=== PATIENT | female | born 1950 ===

== ENCOUNTER 2018-07-29 08:57 | Emergency (ER) | payer MEDICARE, OTHER ==
--- NOTE | 2018-07-29 10:05 | C.PDOC ---
History Of Present Illness 67 year old female presents to the ED complaining of sudden onset bilateral lower back pain radiating to bilateral lower extremities for 3 days. Reports pain is worse on the right side. Notes difficulty walking due to pain. States pa in is the same when she is laying down compared to when she is moving. Reports she has been taking Ibuprofen with no improvement. Denies any trauma, injuries or recent heavy lifting. Also complains of trouble breathing when she walks for one month. Denies any abdominal pain, chest pain, fever, chills, nausea, vomiting, or urinary symptoms. Time Seen by Provider: 07/29/18 09:21 Chief Complaint (Nursing): Back Pain History Per: Patient History/Exam Limitations: no limitations Onset/Duration Of Symptoms: Days (3) Current Symptoms Are (Timing): Still Present Quality Of Discomfort: "Pain" Previous Symptoms: None Associated Symptoms: None Past Medical History Reviewed: Historical Data, Nursing Documentation, Vital Signs Vital Signs: Last Vital Signs Temp 98.3 F 07/29/18 09:11 Pulse 91 H 07/29/18 09:11 Resp 18 07/29/18 09:11 BP 195/121 H 07/29/18 09:11 Pulse Ox 97 07/29/18 09:11 - Medical History PMH: Arthritis, Asthma, Gall Bladder Disease, HTN, Hypercholesterolemia, Sleep Apnea (on Cpap) Surgical History: Cholecystectomy - [facility] Procedures CORONAR ARTERIOGR-2 CATH (09/16/00) LEFT HEART CARDIAC CATH (09/16/00) LT HEART ANGIOCARDIOGRAM (09/16/00) Family History: States: No Known Family Hx - Social History Hx Tobacco Use: No Hx Alcohol Use: No Hx Substance Use: No - Immunization History Hx Tetanus Toxoid Vaccination: Yes Hx Influenza Vaccination: Yes Hx Pneumococcal Vaccination: No Review Of Systems Except As Marked, All Systems Reviewed And Found Negative. Constitutional: Negative for: Fever, Chills Respiratory: Positive for: Shortness of Breath Gastrointestinal: Negative for: Nausea, Vomiting, Abdominal Pain, Diarrhea Genitourinary: Negative for: Dysuria, Hematuria Musculoskeletal: Positive for: Back Pain, Leg Pain (B/L) Skin: Negative for: Rash Neurological: Negative for: Weakness, Numbness Physical Exam - Physical Exam Appears: Non-toxic, No Acute Distress Skin: Warm, Dry Head: Normacephalic Eye(s): bilateral: PERRL, EOMI Nose: Normal Oral Mucosa: Moist Neck: Trachea Midline, Supple Chest: Symmetrical Cardiovascular: Rhythm Regular Respiratory: No Rales, No Rhonchi, No Wheezing, Other (CTA B/L ) Gastrointestinal/Abdominal: Soft, No Tenderness Back: Decreased ROM (Limited due to pain ) Extremity: Bilateral: Atraumatic, No Pedal Edema, Normal Color And Temperature Pulses: Left Dorsalis Pedis: Normal, Right Dorsalis Pedis: Normal Neurological/Psych: Oriented x3, Normal Speech Gait: Steady ED Course And Treatment - Laboratory Results Result Diagrams: 07/29/18 10:48 07/29/18 10:48 ECG: Interpreted By Me ECG Rhythm: Sinus Rhythm ECG Interpretation: Normal Rate From EC O2 Sat by Pulse Oximetry: 97 (RA) Pulse Ox Interpretation: Normal Progress - Re-Evaluation Re-evaluation Note: 07/29/18 12:56 FEELS BETTER AMBUL W CANE. DOES NOT WISH ADDL PAIN RX @ THIS TIME. PENDING CT REPORT 07/29/18 14:21 CT REPORT REVIEWED. NO ACUTE FINDINGS CT, LABS PT ADVISED NEED FOR PMD FU, POSSIBLE MRI. PT REFUSING ADDL PAIN RX, DOES NOT WANT NARCOTIC RX DUE TO SIDE EFFECT. PS TRIED 1 TAB OTC IBUPROFEN. - Data Reviewed Data Reviewed: Lab, Diagnostic imaging, EKG Medical Decision Making Medical Decision Making: Plan - CT dissection study - EKG - Bloodwork - Morphine 2mg IVP - Zofran 4mg IVP - Urine culture - UA Disposition Counseled Patient/Family Regarding: Studies Performed, Diagnosis, Need For Followup, Rx Given - Disposition Referrals: YOUR,PMD [Other] Disposition: HOME/ ROUTINE Disposition Time: 14:23 Condition: IMPROVED Prescriptions: Cyclobenzaprine [Flexeril] 10 mg PO TID #15 tab Gabapentin [Neurontin] 300 mg PO TID #30 cap Ibuprofen [Motrin Tab] 800 mg PO Q6 #30 tab Instructions: Radiculopathy (DC) Forms: [facility] (Algerian) - Clinical Impression Clinical Impression: Leg pain - Scribe Statement The provider has reviewed the documentation as recorded by the Scribe Wendy Grayson All medical record entries made by the Scribe were at my direction and personally dictated by me. I have reviewed the chart and agree that the record accurately reflects my personal performance of the history, physical exam, medical decision making, and the department course for this patient. I have also personally directed, reviewed, and agree with the discharge instructions and disposition.
[2018-07-29 10:53] LABS: BASO # 0.1 K/uL (0.0-0.2); BASO % 1.2 % (0.0-2.0); EOS # 0.2 K/uL (0.0-0.7); EOS % 2.5 % (0.0-4.0); HEMOGLOBIN 12.3 g/dL (11.0-16.0); LYMPH # 1.1 K/uL (1.0-4.3); LYMPH % 19.2 % (20.0-40.0); MEAN CELL VOLUME 92.3 fL (81.0-99.0); MEAN CORPUSCULAR HEMOGLOBIN 31.2 pg (27.0-31.0); MEAN CORPUSCULAR HGB CONC 33.8 g/dL (33.0-37.0); MEAN PLATELET VOLUME 7.5 fL (7.2-11.7); MONO # 0.6 K/uL (0.0-0.8); MONO % 9.3 % (0.0-10.0); NEUT % 67.8 % (50.0-75.0); RBC 3.93 Mil/uL (3.80-5.20); RED CELL DISTRIBUTION WIDTH 13.1 % (11.5-14.5); WHITE BLOOD COUNT 5.9 K/uL (4.8-10.8)
[2018-07-29 10:58] LABS: SQUAMOUS EPITHIAL 1 /hpf (0-5); URINE BILIRUBIN NEGATIVE (NEGATIVE); URINE BLOOD NEGATIVE (NEGATIVE); URINE CLARITY Clear (Clear); URINE COLOR Yellow (YELLOW); URINE GLUCOSE (UA) NORMAL (Normal); URINE LEUKOCYTE ESTERASE NEG Leu/uL (Negative); URINE PROTEIN NEGATIVE (NEGATIVE); URINE UROBILINOGEN NORMAL mg/dL (0.2-1.0)
[2018-07-29 11:07] LABS: ALB/GLOB RATIO 1.4 (1.0-2.1); ALBUMIN 4.4 g/dL (3.5-5.0); ALT/SGPT 22 U/L (9-52); AST/SGOT 37 U/L (14-36); BLOOD UREA NITROGEN 17 mg/dL (7-17); CALCIUM 9.5 mg/dl (8.6-10.4); GFR NON-AFRICAN AMERICAN > 60; LIPASE 107 U/L (23-300)
[2018-07-29] MEDS ORDERED: Iohexol 300 100 ML IJ ONE (11:28)
--- NOTE | 2018-07-29 13:40 | CT ---
Date of service: 07/29/2018 CT Dissection protocol Indication: BACK PAIN, HO HTN Technique: Contiguous axial images were obtained through the chest/abdomen/pelvis without and with intravenous contrast enhancement utilizing dissection protocol technique. Sagittal and coronal reconstructions were generated and reviewed. This CT exam was performed using 1 or more of the following dose reduction techniques: Automated exposure control, adjustment of the MAA and/or kV according to patient size, and/or use of iterative reconstruction technique. Radiation dose (DLP): 2378.73 MGy-cm. Contrast: 100 cc Visipaque 320 IV Findings: Visualized portions of the inferior thyroid gland appear unremarkable. The mediastinal and hilar vascular structures appear within normal limits. The heart appears within normal limits of size. Coronary artery calcifications. No evidence of thoracic aorta dissection or aneurysmal dilatation. No focal consolidation. No pleural effusion. No pneumothorax. No suspicious pulmonary nodules measuring greater than 5 mm. Mild atherosclerotic calcifications. There is normal course and contour of the abdominal aorta and common iliac arteries. The celiac artery origin, superior mesenteric artery origin, and inferior mesenteric artery origins appear patent. 2 right renal arteries and a single left renal artery appear patent. 1.4 x 0.8 cm peripherally calcified hypodense inferior right hepatic lobe mass. Hepatomegaly. Hypoattenuation of the liver compatible with hepatic steatosis. Cholecystectomy. The pancreas, spleen, and adrenal glands appear unremarkable. The kidneys enhance symmetrically without evidence of hydronephrosis or obstructing renal calculi. No enlarged abdominal lymphadenopathy is identified. The stomach is nondistended. Visualized bowel loops appear within normal limits of caliber without evidence of obstruction. The appendix appears normal. No inflammatory changes are seen in the right lower quadrant to suggest acute appendicitis. No definite free air. The urinary bladder appears unremarkable. The uterus is present. No significant pelvic free fluid is identified. Degenerative changes. T12 vertebral body probable hemangioma. Osseous demineralization. Impression: No evidence of thoracic or abdominal aortic aneurysm or dissection. 1.4 x 0.8 cm peripherally calcified hypodense inferior right hepatic lobe mass. Hepatomegaly. Hypoattenuation of the liver compatible with hepatic steatosis. Cholecystectomy. Additional findings as above.
[2018-07-29 15:07] VITALS: BP 173/100; PULSE 74; RESP 20; TEMP 98.5; O2SAT 96
--- NOTE | 2018-07-30 15:24 | CARD ---
APPROVED REPORT Date of service: 07/29/2018 EKG Measurement Heart [id number] <Conclusion> Normal sinus rhythm with sinus arrhythmia Minimal voltage criteria for LVH, may be normal variant Borderline ECG
== END 2018-07-29 15:07 | disposition home or self-care (01) ==
LOC: C.ER 08:57
DX: M79.605 Pain in left leg (principal); M79.604 Pain in right leg
CPT/HCPCS: 71275; 74175; 80053; 81001; 83690; 85025; 87086; 93005; 96374; 96375; 99285; J1885; J2270; J2405; Q9967